=== PATIENT | female | born 1985 | race Asian ===

== ENCOUNTER 2017-08-28 07:09 | Emergency (ER) | payer OTHER ==
[~2017-08-28] VITALS: Ht 144.8 cm; Wt 56.7 kg
[2017-08-28 08:38] LABS: PLATELET COUNT 303 K/uL (152-353)
[2017-08-28 08:53] LABS: POTASSIUM 3.8 mmol/L (3.6-5.2)
[2017-08-28 09:56] VITALS: BP 117/72; TEMP 97.7
== END 2017-08-28 10:03 | disposition home or self-care (01) ==
LOC: ED 07:09
PROVIDERS: Family Medicine
DX: R10.30 Lower abdominal pain, unspecified (principal)
CPT/HCPCS: 36415; 80053; 81000; 81025; 85027; 99283

== ENCOUNTER 2018-06-11 04:40 | Outpatient (CLI) | payer OTHER | END 2018-06-11 04:44 | disposition short-term general hospital (02) | LOC: AMB 04:40 | DX: R11.2 Nausea with vomiting, unspecified (principal) | CPT/HCPCS: A0425; A0429 ==

== ENCOUNTER 2018-06-11 04:53 | Emergency (ER) | payer OTHER ==
[~2018-06-11] VITALS: Ht 144.8 cm; Wt 58.1 kg
[2018-06-11 05:36] LABS: PLATELET COUNT 250 K/uL (152-353)
[2018-06-11 06:07] LABS: POTASSIUM 3.3 mmol/L (3.6-5.2)
[2018-06-11 06:29] VITALS: BP 112/82; TEMP 98.1
== END 2018-06-11 06:34 | disposition home or self-care (01) ==
LOC: ED 04:53
PROVIDERS: Internal Medicine
DX: O21.0 Mild hyperemesis gravidarum (principal); R11.0 Nausea; E87.6 Hypokalemia
CPT/HCPCS: 36415; 80053; 85027; 99283; J2405

== ENCOUNTER 2018-09-21 23:33 | Emergency (ER) | payer OTHER ==
[~2018-09-21] VITALS: Ht 144.8 cm; Wt 58.1 kg
[2018-09-22 00:12] VITALS: BP 109/74; TEMP 98
== END 2018-09-22 00:49 | disposition left against medical advice (07) ==
LOC: ED 23:33
DX: Z04.41 Encounter for examination and observation following alleged adult rape (principal)
CPT/HCPCS: 99281

== ENCOUNTER 2018-11-07 14:13 | Emergency (ER) | payer OTHER ==
[~2018-11-07] VITALS: Ht 144.8 cm; Wt 51.7 kg
[2018-11-07 14:28] VITALS: BP 153/95; TEMP 97.9
[2018-11-07 17:29] LABS: PLATELET COUNT 258 K/uL (152-353)
[2018-11-07 17:38] LABS: POTASSIUM 3.9 mmol/L (3.6-5.2)
== END 2018-11-07 18:25 | disposition home or self-care (01) ==
LOC: ED 14:13
PROVIDERS: Family Medicine
DX: S80.862A Insect bite (nonvenomous), left lower leg, initial encounter (principal); W57.XXXA Bitten or stung by nonvenomous insect and other nonvenomous arthropods, initial encounter; Y92.89 Other specified places as the place of occurrence of the external cause; M79.10 Myalgia, unspecified site
CPT/HCPCS: 80053; 85027; 99283

== ENCOUNTER 2020-01-17 15:17 | Emergency (ER) | payer OTHER ==
[~2020-01-17] VITALS: Ht 144.8 cm; Wt 77.1 kg
[2020-01-17 15:31] VITALS: TEMP 99.4
[2020-01-17 15:51] LABS: PLATELET COUNT 325 K/uL (152-353)
[2020-01-17 16:00] LABS: POTASSIUM 3.4 mmol/L (3.6-5.2); SODIUM 140 mmol/L (136-145)
[2020-01-17 16:05] LABS: PARTIAL THROMBOPLASTIN TIME 26.3 SECONDS (24.5-33.6)
[2020-01-17 17:25] VITALS: BP 120/80
== END 2020-01-17 17:27 | disposition home or self-care (01) ==
LOC: ED 15:17
PROVIDERS: Hospitalist
DX: R07.89 Other chest pain (principal); K21.9 Gastro-esophageal reflux disease without esophagitis; F17.290 Nicotine dependence, other tobacco product, uncomplicated
CPT/HCPCS: 80053; 82550; 83880; 84484; 85027; 85610; 85730; 87502; 87651; 93005; 96374; 99284; J2405

== ENCOUNTER 2022-01-30 09:29 | Emergency (ER) | payer OTHER ==
[~2022-01-30] VITALS: Ht 144.8 cm; Wt 60.8 kg
[2022-01-30 09:35] VITALS: BP 117/86; TEMP 98.7
== END 2022-01-30 10:20 | disposition home or self-care (01) ==
LOC: ED 09:29
DX: M54.59 Other low back pain (principal); M46.1 Sacroiliitis, not elsewhere classified
CPT/HCPCS: 81002; 99282

== ENCOUNTER 2022-08-05 11:41 | Emergency (ER) | payer OTHER ==
[~2022-08-05] VITALS: Ht 144.8 cm; Wt 73.9 kg
[2022-08-05 11:41] VITALS: BP 133/83; TEMP 99.1
== END 2022-08-05 11:47 | disposition home or self-care (01) ==
LOC: ED 11:44
DX: Z53.21 Procedure and treatment not carried out due to patient leaving prior to being seen by health care provider (principal)
CPT/HCPCS: 99281